=== PATIENT | female | born 1985 | race Caucasian/White ===

== ENCOUNTER 2016-08-22 05:14 | Emergency (ER) | payer OTHER ==
[2016-08-22] MEDS ORDERED: SODIUM CHLORIDE 1,000 ML IV STA (05:27)
[2016-08-22] MEDS ORDERED: METOCLOPRAMIDE HCL INJECTION 10 MG/2 ML VIAL IVPB ONE (05:28)
[2016-08-22] MEDS ORDERED: FAMOTIDINE 20 MG/50 ML IVPB 50 ML IVPB ONE ×2 (05:29→05:41)
[2016-08-22 05:30] VITALS: BP 108/74; PULSE 69; TEMP 97; BMI 30.1
--- NOTE | 2016-08-22 05:35 | PDOC ---
History of Present Illness - General Chief Complaint: Pain, Acute Stated Complaint: ABDOMINAL PAIN/ANXIETY Time Seen by Provider: 08/22/16 05:27 - History of Present Illness Initial Comments: 08/22/16 05:29 This 30-year-old woman with a history of anxiety but no other significant medical issues presents with several hour history of epigastric discomfort and nausea. Patient ate at approximately 6:30 PM last night (chicken Parmesan roll) ); she had a mild headache prior to going to bed and took 2 Tylenol. At approximately 11 p.m. ,she was awakened with epigastric discomfort and nausea. This continued, preventing patient from sleeping. At approximately 3:30A she took Pepto-Bismol and Simethicone tablet. Soon after this, she vomited once ( semi digested food; no blood/coffee grounds). She had one normal bowel movement after this. Patient states that she continued to have discomfort and mild nausea and came to the emergency room. She denies fever/chills. She has no dysuria/hematuria/urinary frequency. No recent travel and no sick contacts. Patient denies previous history of peptic ulcer disease/gastritis/GERD; she has no history of biliary tract abnormalities. No chest pain; no shortness of breath Patient states that she has some acute distress in her life ("big meeting" in the morning) Patient just completed menstruation PMH Anxiety Medications Oral contraceptives Phentermine (for appetite suppression ,for the last 4 weeks) No alcohol use Approximately three quarters pack of tobacco daily; also,pt smokes marijuana daily No other recreational drug use 08/22/16 06:55 Past History - Past Medical History Allergies/Adverse Reactions: Allergies Allergy/AdvReac Type Severity Reaction Status Date / Time miconazole nitrate Allergy Verified 08/22/16 05:16 [From Monistat 1 Combo Pack] Home Medications: Ambulatory Orders Norgestimate-Ethinyl Estradiol [Sprintec 28 Day Tablet] 1 each PO DAILY Ondansetron [Zofran Odt -] 4 mg SL BID PRN #14 od.tablet 08/22/16 Phentermine HCl 37.5 mg PO DAILY 08/22/16 Review of Systems - Review of Systems Able to Perform ROS?: Yes Comments:: 12 point review of systems is negative except for what is noted in the history of present illness *Physical Exam - Physical Exam Comments: GENERAL:Adult female, alert and oriented 3, mildly anxious but in no acute distress HEAD: Normal with no signs of trauma. EYES: PERRLA, EOMI, sclera anicteric, conjunctiva clear. ENT: Ears normal, nares patent, oropharynx clear without exudates. Dry mucous membranes. NECK: Normal range of motion, supple without lymphadenopathy, JVD, or masses. LUNGS: Breath sounds equal, clear to auscultation bilaterally. No wheezes, and no crackles. HEART:Regular rate and rhythm, normal S1 and S2 without murmur, rub or gallop. ABDOMEN:.normal bowel sounds; minimal generalized tenderness; No guarding or rebound.No masses No distention. EXTREMITIES: Normal range of motion, no edema. No clubbing or cyanosis. No erythema, or tenderness. NEUROLOGICAL: Cranial nerves II through XII grossly intact. Normal speech. No focal neurological deficits. MUSCULOSKELETAL: Back non-tender to palpation, no CVA tenderness SKIN: Warm, Dry, normal turgor, no rashes or lesions noted. Progress Note - Progress Note Progress Note: Patient felt significantly better after a liter of normal saline and 10 mg of Reglan IV. Patient will be discharged with instructions to follow light diet and advance diet cautiously. Prescription for Zofran 4 mg ODT will be sent to her pharmacy to be used as needed for persistent nausea. She should return to the emergency room if she has recurrent vomiting or develops worsening pain/fever. She will follow-up with her general doctor within the next few days. *DC/Admit/Observation/Transfer Diagnosis at time of Disposition: Acute gastroenteritis - Discharge Dispostion Disposition: HOME Condition at time of disposition: Stable - Prescriptions Prescriptions: Ondansetron [Zofran Odt -] 4 mg SL BID PRN #14 od.tablet PRN Reason: Nausea - Referrals Referrals: GRANT STEEN [Primary Care Provider] - - Patient Instructions Printed Discharge Instructions: DI for Bacterial Gastroenteritis -- Adult, Smoking Cessation Additional Instructions: Clear liquids; advance diet cautiously Zofran 4 mg ODT up to twice a day as needed for nausea don't go to work today Return if you have severe pain or persistent vomiting Follow-up with your general doctor within the next 2-3 days
== END 2016-08-22 07:05 | disposition home or self-care (01) ==
LOC: FER 05:14
PROC: 3E033GC Introduction of Other Therapeutic Substance into Peripheral Vein, Percutaneous Approach (ICD-10-PCS; principal; 2016-08-22)
PROC: 3E0337Z Introduction of Electrolytic and Water Balance Substance into Peripheral Vein, Percutaneous Approach (ICD-10-PCS; 2016-08-22)
DX: K52.9 Noninfective gastroenteritis and colitis, unspecified (principal)
CPT/HCPCS: 96361; 96365; 96375; 99282-25